=== PATIENT | male | born 1960 | race Two or more races ===

== ENCOUNTER 2019-01-06 10:07 | Outpatient (CLI) | payer OTHER | END 2019-01-06 10:30 | disposition home or self-care (01) | LOC: SONOGRAMA 10:07 → MAMO-SONO 10:45 | DX: N20.0 Calculus of kidney (principal) ==

== ENCOUNTER 2020-09-13 11:00 | Outpatient (CLI) | payer OTHER | END 2020-09-13 11:08 | disposition home or self-care (01) | LOC: RAD 11:00 | PROVIDERS: ATTEND Podiatrist Foot Surgery | DX: M79.671 Pain in right foot (principal); M72.2 Plantar fascial fibromatosis ==

== ENCOUNTER 2022-10-02 07:49 | Outpatient (CLI) | payer OTHER | END 2022-10-02 08:03 | disposition home or self-care (01) | LOC: RAD 07:49 | DX: M99.01 Segmental and somatic dysfunction of cervical region (principal); M99.02 Segmental and somatic dysfunction of thoracic region; M99.03 Segmental and somatic dysfunction of lumbar region; M99.05 Segmental and somatic dysfunction of pelvic region; M79.642 Pain in left hand; M25.511 Pain in right shoulder; M25.512 Pain in left shoulder ==